=== PATIENT | male | born 1940 | race Native Hawaiian/Other Pacific Islander ===

== ENCOUNTER 2024-01-04 13:10 | Outpatient (CLI) | payer OTHER ==
[2024-01-04 14:09] LABS: PLATELET COUNT 190 K/uL (142-355)
== END 2024-01-04 20:09 | disposition home or self-care (01) ==
LOC: LAB 13:10
PROVIDERS: ATTEND Internal Medicine
DX: E11.9 Type 2 diabetes mellitus without complications (principal); E78.49 Other hyperlipidemia; E55.9 Vitamin D deficiency, unspecified
CPT/HCPCS: 80053; 80061; 81002; 82306; 83036; 84439; 84443; 85027